=== PATIENT | female | born 1970 | race Caucasian/White ===

== ENCOUNTER 2018-01-08 07:54 | Emergency (ER) | payer MEDICAID ==
[~2018-01-08] VITALS: Ht 152.4 cm; Wt 58.1 kg
[2018-01-08 07:58] VITALS: BP 156/77
[2018-01-08] MEDS ORDERED: IBUP-1985 PO (09:56)
== END 2018-01-08 10:06 | disposition home or self-care (01) ==
LOC: ER 07:55
DX: S05.12XA Contusion of eyeball and orbital tissues, left eye, initial encounter (principal); F17.210 Nicotine dependence, cigarettes, uncomplicated; F12.10 Cannabis abuse, uncomplicated; Z79.899 Other long term (current) drug therapy; Y08.89XA Assault by other specified means, initial encounter; Y93.89 Activity, other specified; Y92.89 Other specified places as the place of occurrence of the external cause; Y99.8 Other external cause status
CPT/HCPCS: 70450; 70486; 72125; 99284

== ENCOUNTER 2019-02-28 04:25 | Emergency (ER) | payer MEDICAID ==
[~2019-02-28] VITALS: Ht 152.4 cm; Wt 54.5 kg
[~2019-02-28 04:25] MED LIST: IBUP-1985 PO
[2019-02-28 04:28] VITALS: BP 130/92
[2019-02-28] MEDS ORDERED: gabapentin 300mg capsule PO ONE (04:40)
[2019-02-28] MEDS ORDERED: GABA-530 PO (04:42)
--- NOTE | 2019-02-28 04:50 | NUR ---
NOTIFIED OF GLUCOSE
== END 2019-02-28 04:53 | disposition home or self-care (01) ==
LOC: ER 04:26
DX: M79.672 Pain in left foot (principal); M79.671 Pain in right foot; F12.90 Cannabis use, unspecified, uncomplicated; Z98.890 Other specified postprocedural states; Z79.899 Other long term (current) drug therapy
CPT/HCPCS: 82948; 99283

== ENCOUNTER → 2024-05-02 | Outpatient (CLI) | payer MEDICAID ==
[~2024-05-02] MED LIST changes: +GABA-530 PO
== END | disposition home or self-care (01) ==
LOC: RAD 12:43
PROVIDERS: ATTEND Nurse Practitioner
DX: E04.2 Nontoxic multinodular goiter (principal); Z86.39 Personal history of other endocrine, nutritional and metabolic disease
CPT/HCPCS: 76536

== ENCOUNTER 2024-06-19 23:03 | Emergency (ER) | payer MEDICAID ==
[~2024-06-19] VITALS: Ht 152.4 cm; Wt 57.7 kg
[2024-06-19] MEDS: LORazepam 1 MG tablet PO ONE (23:42)
[2024-06-20] MEDS: amLODIPine 5mg tablet PO ONE (00:33)
[2024-06-20 00:47] VITALS: PULSE 78; O2SAT 98
[2024-06-20 01:24] VITALS: BP 149/81; RESP 18
== END 2024-06-20 01:31 | disposition home or self-care (01) ==
LOC: ER 23:03
DX: I10 Essential (primary) hypertension (principal); F17.200 Nicotine dependence, unspecified, uncomplicated; F12.90 Cannabis use, unspecified, uncomplicated; Z79.1 Long term (current) use of non-steroidal anti-inflammatories (NSAID); Z79.899 Other long term (current) drug therapy
CPT/HCPCS: 99283